=== PATIENT | male | born 1970 | race Caucasian/White ===

== ENCOUNTER 2022-06-20 12:06 | Emergency (ER) | payer SELFPAY ==
[~2022-06-20] VITALS: Ht 160 cm; Wt 74.4 kg
--- NOTE | 2022-06-20 12:21 | NUR ---
PATIENT AMBULATED TO BED 5.
[2022-06-20 12:22] VITALS: BP 155/87
[2022-06-20] MEDS ORDERED: ACETAMINOPHEN EXTRA STRENGTH 500 MG TAB PO ONE (12:25)
--- NOTE | 2022-06-20 12:26 | NUR ---
52 y/o male bib spouse, c/o right sided facial pain in relation to dental pain for 3 days. pt states his upper molar on his right side has been giving him pain and has swelling to site. describes as cramping, 7/10 pain at this time. pmh: denies nka med: tylenol 11pm last dose
--- NOTE | 2022-06-20 12:29 | NUR ---
PATIENT BEING EVALUATED BY WILBER TOWNSEND.
--- NOTE | 2022-06-20 12:30 | NUR ---
52YO MALE PT C/O R UPPER MOLAR PAIN X3DAYS. PAIN AT MOST ON MOVEMENT OR EATING. STATES CURRENTLY BEING ON SOFT DIET PER COMFORT. LOOSE MOLAR NOTED. STATES RELIEF AFTER TYLENOL. AT ARRIVAL PT W/ FEVER AND MEDICATED PER ORDER. DENIES V/D OR CHILLS. PT AAOX4, NO VISIBLE DISTRESS HX:DENIES NKA
[2022-06-20] MEDS ORDERED: AMOX500C25 PO (12:44)
[2022-06-20] MEDS ORDERED: IBUP-2213 PO (12:44)
[2022-06-20 12:55] VITALS: BP 155/87
== END 2022-06-20 12:55 | disposition home or self-care (01) ==
LOC: MED 12:06
DX: S03.2XXA Dislocation of tooth, initial encounter (principal); Z79.1 Long term (current) use of non-steroidal anti-inflammatories (NSAID); Z79.2 Long term (current) use of antibiotics; X58.XXXA Exposure to other specified factors, initial encounter; Y92.89 Other specified places as the place of occurrence of the external cause; Y93.89 Activity, other specified; Y99.8 Other external cause status
CPT/HCPCS: 99283